=== PATIENT | male | born 1955 | race Caucasian/White ===

== ENCOUNTER 2025-03-24 11:08 | Day surgery (SDC) | payer MEDICARE, OTHER ==
[2025-03-24] VITALS (15 sets, daily range): BP systolic 108–183; BP diastolic 51–129
[~2025-03-24] VITALS: Ht 177.8 cm; Wt 103.5 kg
[~2025-03-24 11:08] MED LIST: Aspir 8181 MG PO; CELE200 PO; GEMF600 PO; METF500 PO; MOUNJARO2.5 MG/0.5 SQ; TADA10TA
--- NOTE | 2025-03-24 11:34 | NUR ---
History, Chart, Medications and Allergies reviewed before start of procedure. Pre-Op teaching done. Pt verbalizes understanding. Patient states colon prep results GREEN. Patient confirms NPO status and agrees with scheduled surgery.
--- NOTE | 2025-03-24 12:52 | NUR ---
03/24/25 1252 Gerard Parmar CONFIRMED AND REVIEWED H&P, MEDCICATIONS, ALLERGIES, MEDICAL HISTORY, RESPIRATORY HISTORY, VITAL SIGNS, 3-LEAD EKG, CONSENTS, AND PHYSICIAN ORDERS. PATIENT CONFIRMS NPO STATUS AND AGREES WITH SCHEDULED PROCEDURE. MONITOR INTACT WITH CONTINUOUS PULSE OXIMETRY, CAPNOGRAPHY, 3-LEAD EKG, INTERMITTENT BP. SUPPLEMENTAL O2 TO BE TITRATED THROUGHOUT PROCEDURE TO MAINTAIN O2 SATURATION ABOVE 90%. PATIENT DETERMINED TO BE ASA APPROPRIATE FOR PROPOFOL SEDATION PRIOR TO START OF PROCEDURE BY DR. ECKERT.
--- NOTE | 2025-03-24 13:50 | NUR ---
Patient up to Ambulate independently. Gait steady. Discharge instructions reviewed with patient. Patient verbalizes understanding. Copy given to patient to take home, [facility]. Patient States Post-Procedure ride home has been arranged. Discharged via wheelchair to private car for ride home. PT DECLINES PO, REPORTS READY TO GO HOME.
== END 2025-03-24 23:00 | disposition home or self-care (01) ==
LOC: ORSCMMR 11:08 → ORD 15:00 → ORSCMMR 23:00
PROVIDERS: Family Medicine
PROC: 0DB48ZX Excision of Esophagogastric Junction, Via Natural or Artificial Opening Endoscopic, Diagnostic (ICD-10-PCS; principal; 2025-03-24 12:30)
PROC: 0DB68ZX Excision of Stomach, Via Natural or Artificial Opening Endoscopic, Diagnostic (ICD-10-PCS; principal; 2025-03-24 12:30)
PROC: 0DJD8ZZ Inspection of Lower Intestinal Tract, Via Natural or Artificial Opening Endoscopic (ICD-10-PCS; principal; 2025-03-24 12:30)
DX: R13.10 Dysphagia, unspecified (principal); Z12.11 Encounter for screening for malignant neoplasm of colon; K29.70 Gastritis, unspecified, without bleeding; K57.10 Diverticulosis of small intestine without perforation or abscess without bleeding; K64.4 Residual hemorrhoidal skin tags; E11.9 Type 2 diabetes mellitus without complications; E78.5 Hyperlipidemia, unspecified; J44.9 Chronic obstructive pulmonary disease, unspecified; K44.9 Diaphragmatic hernia without obstruction or gangrene; Z79.84 Long term (current) use of oral hypoglycemic drugs; F17.210 Nicotine dependence, cigarettes, uncomplicated; Z79.899 Other long term (current) drug therapy
CPT/HCPCS: 43239; G0121; 82947; 88305; 88342; J2704; J7120